=== PATIENT | male | born 2005 | race Caucasian/White ===

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

== ENCOUNTER 2024-01-01 15:30 | Emergency (ER) | payer BC ==
[2024-01-01] MEDS: Diphtheria,Pertussis(Acell),Tetanus Vaccine 0.5 ML Syringe IM ONE (16:10)
[2024-01-01] MEDS: Lidocaine 1% 10 ML MDV INJECT ONE (16:10)
== END 2024-01-01 17:04 | disposition home or self-care (01) ==
LOC: JD.ED 15:30
DX: S01.81XA Laceration without foreign body of other part of head, initial encounter (principal); Z23 Encounter for immunization; Z91.010 Allergy to peanuts; Z91.012 Allergy to eggs; Z91.018 Allergy to other foods; W22.8XXA Striking against or struck by other objects, initial encounter
CPT/HCPCS: 12011; 90471; 90715; 99283-25; J3490